=== PATIENT | female | born 1980 | race Caucasian/White ===

== ENCOUNTER 2016-12-30 20:15 | Emergency (ER) | payer MEDICAID ==
[2016-12-30 20:20] VITALS: BP 142/79; BMI 36.6
[2016-12-30] MEDS ORDERED: TORADOL 60 MG VIAL IM ONE (20:46)
[2016-12-30] MEDS ORDERED: PHENERGAN INJ 25 MG IM ONE (20:46)
[2016-12-30] MEDS ORDERED: PHENERGAN INJ 25 MG ONE (20:52)
[2016-12-30] MEDS ORDERED: TORADOL 60 MG VIAL ONE (20:52)
--- NOTE | 2016-12-30 20:53 | DR.GENAD ---
HPI - PCP Primary Care Physician: [facility] - Complaint/Symptoms Chief Complaint Doctors Comments: Patient complains of right lower quadrant pain that radiates down to the groin on the right side with nausea but denies hematuria, vomiting, diarrhea, fever, chills or any recent trauma. States the pain is 10 of 10. States she goes to a clinic in [place] for treatment but she has not gone there recently because she has not had any insurance. States she had a kidney stone last year about this same time and she passed the stone. She states her appetite has been decreased. She does not have a local doctor. States her periods has been regular and she has a Tubaligation. She is having right hip pain for the past 24 hours with the pain worst when she move or stand. She is not taking anything for the pain. Chief Complaint:: LOWER ABD PAIN YESTERDAY, TODAY LEFT UPPER LEG PAIN AND NAUSEA. DENIES ANY DYSURIA, VOMITING, DIARRHEA. DENIES LIFTING ANY HEAVY OBJECTS OVER LAST FEW DAYS. 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 negative: See HPI, Chills, Diaphoresis, Fever, Malaise, Weakness, Irritable, Fatigue, Other Eyes: No Symptoms Reported. negative: See HPI, Eye Pain, Blurred Vision, Tearing, Discharge, Photophobia, Diplopia, Other ENTM: No Symptoms Reported Respiratoy: No Symptoms Reported. negative: See HPI, Productive Cough, Non- Productive Cough, Moist Cough, Dry Cough, Hacking Cough, Barking Cough, Brassy Cough, Orthopnea, Short of Breath, Stridor, Wheezing, Hemoptysis, Other Cardiovascular: No Symptoms Reported. negative: See HPI, Chest Pain, Edema, Palpitations, Syncope, Cyanosis, Skin Mottling, Other Gastrointestinal/Abdominal: Abdominal Pain, Nausea. negative: No Symptoms Reported, See HPI, Constipation, Diarrhea, Vomiting, Food Intolerance, Other Genitourinary: No Symptoms Reported. negative: See HPI, Discharge, Dysuria, Frequency, Hematuria, Pain, Bleeding, Other Neurological: No Symptoms Reported. negative: See HPI, Anxiety, Depressed, Emotional Problems, Headache, Numbness, Paresthesia, Pre-existing Deficit, Seizure, Tingling, Tremors, Weakness, Dizziness, Problems Walking, Speech Problem, Other Musculoskeletal: No Symptoms Reported, Left, Hip Integumentary: No Symptoms Reported. negative: See HPI, Change in Color, Change in Hair/Nails, Dryness, Lesions, Lumps, Rash, Itching, Wound, Bruises, Juandice, Other Hematologic/Lymphatic: No Symptoms Reported. negative: See HPI, Anemia, Blood Clots, Easy Bleeding, Easy Bruising, Swollen Glands, Lymphadenopathy, Other Endocrine: No Symptoms Reported, Increased Urine, Decreased Appetite. negative : See HPI, Excessive Sweating, Flushing, Intolerance to Cold, Intolerance to Heat, Increased Hunger, Increased Thirst, Unexplained Weight Gain, Unexplained Weight Loss, Failure to Thrive, Other Psychiatric: No Symptoms Reported PE - Vital Signs Vitals: Temperature 98.2 F Pulse Rate 98 Respiratory Rate 16 Blood Pressure 142/79 O2 Sat by Pulse Oximetry 100 - General Limitations: No Limitations General Appearance: Alert, In Distress (moderate). negative: In No Apparent Distress, Appears Intoxicated, Anxious, Lethargic, Obtunded, Obese, Cachectic, Other - Head Head Exam: Normal Inspection, Atraumatic, Normocephalic - Eyes Eye exam: Normal Appearance, PERRL, EOMI. negative: Scleral Icterus, Conjunctival Injection, Nystagmus, Miosis, Mydrasis, Periorbital Swelling, Periorbital Tenderness, Other - ENT ENT Exam: Normal Exam, Normal Oropharynx, Normal External Ear Exam, Mucous Membranes Moist, TM's Normal Bilaterally External Ear Exam: Normal External Inspection TM/Canal Exam: Bilateral Normal Nose Exam: Normal Nose Exam. negative: Sinus Tenderness, Nasal Deviation, Crepitus, Septal Hematoma, Laceration, Abrasion, Other Mouth Exam: Normal Inspection Throat Exam: Normal Inspection - Neck Neck Exam: Normal Inspection, Full ROM, Trachea Midline. negative: Tenderness, Meningismus, Lymphadenopathy, Thyromegaly, Other - Chest Chest Inspection: Normal Inspection, Symmetric Chest Wall Rise - Respiratory Respiratory Exam: Normal Lung Sounds Bilat Respiratory Exam: Bilateral Clear to Auscultation - Cardiovascular Cardiovascular Exam: Regular Rate, Normal Rhythm, Normal Heart Sounds. negative : Bradycardia, Tachycardia, Irregular Rhythm, Systolic Murmur, Diastolic Murmur , Rubs, Gallop, Clicks, JVD, +S1, +S2, +S3, +S4, Other - Abdominal Exam Abdominal Exam: Normal Inspection, Normal Bowel Sounds, Soft, Tenderness (right lower quadrant and hypogastric tenderness), Guarding, Dimnished Bowel Sounds Abdominal Tenderness: RUQ, RLQ, Suprapubic, Moderate - Extremities Extremities Exam: Normal Inspection, Full ROM, Tenderness (left hip tender on palpation and movement), Normal Capillary Refill. negative: Edema, Joint Swelling, Calf Tenderness, Other - Back Back Exam: Normal Inspection, Full ROM. negative: Tenderness, (R) CVA Tenderness, (L) CVA Tenderness, Muscle Spasm, Paraspinal Tenderness, Vertebral Tenderness, Rashes, (R) Sciatic Notch Tenderness, (L) Sciatic Notch Tendern, (R ) Straight Leg Raise, (L) Straight Leg Raise, Other - Neurologic Neurological Exam: Alert, Oriented X3, CN II-XII Intact, Normal Gait, Reflexes Normal - Psychiatric Psychiatric Exam: Normal Affect, Normal Mood. negative: Depressed, Agitated, Anxious, Flat Affect, Manic, Homicidal Ideation, Suicidal Ideation, Other - Skin Skin Exam: Warm, Dry, Intact, Normal Color. negative: Rash, Cyanosis, Diaphoresis, Erythema, Pallor, Mottled, Other ROR - Labs Reviewed Laboratory Results Reviewed?: Yes (all labs and x-ray results reviewed and dis cussed with patient) Result Diagrams: 12/30/16 21:01 12/30/16 21:01 Laboratory: WBC 10.2 X10^3/uL (3.6-10.0) H 12/30/16 21:01 RBC 4.60 X10^6/uL (3.5-5.4) 12/30/16 21:01 Hgb 13.3 g/dL (12.0-16.0) 12/30/16 21:01 Hct 39.7 % (36.0-47.0) 12/30/16 21:01 MCV 86.2 fL (80.0-100.0) 12/30/16 21:01 MCH 28.9 pg (27.0-34.0) 12/30/16 21:01 MCHC 33.6 g/dL (33.0-35.0) 12/30/16 21: RDW 12.8 % (11.6-16.5) 12/30/16 21: Plt Count 289 X10^3/uL (150.0-450.0) 12/30/16 21:01 MPV 7.7 fL (7.4-11.0) 12/30/16 21:01 Neut % 52.3 % (42.0-75.0) 12/30/16 21:01 Lymph % 32.6 % (21.0-51.0) 12/30/16 21:01 [place] % 7.0 % (0.0-13.0) 12/30/16 21:01 Eos % 6.6 % (0.9-2.9) H 12/30/16 21:01 Baso % 1.5 % (0.2-1.0) H 12/30/16 21:01 Neut # 5.3 x10^3/uL (2.2-4.8) H 12/30/16 21:01 Lymph # 3.3 X10^3/uL (1.3-2.9) H 12/30/16 21:01 [place] # 0.7 x10^3/uL (0.3-0.8) 12/30/16 21:01 Eos # 0.7 x10^3/uL (0.0-0.2) H 12/30/16 21:01 Baso # 0.2 X10^3/uL (0.0-0.1) H 12/30/16 21:01 Absolute Nucleated RBC 0.0 /100WBC 05/12/17 21:01 Sodium 141 mmol/L (136-145) 12/30/16 21:01 Corrected Sodium 141 mmol/L (136-145) 12/30/16 21:01 Potassium 3.9 mmol/L (3.5-5.1) 12/30/16 21:01 Chloride 103 mmol/L (98-107) 12/30/16 21:01 Carbon Dioxide 28.5 mmol/L (21-32) 12/30/16 21:01 BUN 10 mg/dL (7-18) 12/30/16 21:01 Creatinine 0.82 mg/dL (0.55-1.02) 12/30/16 21:01 Est GFR (MDRD) Af Amer > 60 (>60) 12/30/16 21: Est GFR (MDRD) Non-Af > 60 (>60) 12/30/16 21:01 Glucose 114 mg/dL (65-99) H 12/30/16 21:01 Calcium 9.0 mg/dL (8.5-10.1) 12/30/16 21: Corrected Calcium TNP 12/30/16 21: Total Bilirubin 0.30 mg/dL (0.2-1.0) 12/30/16 21:01 AST 22 Units/L (15-37) 12/30/16 21: ALT 26 Units/L (12-78) 12/30/16 21:01 Alkaline Phosphatase 70 Units/L (46-116) 12/30/16 21:01 Total Protein 7.8 g/dL (6.4-8.2) 12/30/16 21: Albumin 3.6 g/dL (3.4-5.0) 12/30/16 21: Globulin 4.2 g/dL (2.5-4.5) 12/30/16 21:01 Albumin/Globulin Ratio 0.9 Ratio (1.1-2.1) L 12/30/16 21:01 Amylase 34 Units/L (25-115) 12/30/16 21: Lipase 91 Units/L (73-393) 12/30/16 21:01 Specimen Type Clean catch urine 12/30/16 21:00 Urine Color Yellow (YELLOW) 12/30/16 21:00 Urine Appearance Slightly hazy (CLEAR) 12/30/16 21:00 Urine pH 5.0 (5.0 - 8.0) 12/30/16 21:00 Ur Specific [place] 1.020 (1.000-1.030) 12/30/16 21:00 Urine Protein Negative (NEGATIVE) 12/30/16 21:00 Urine Glucose (UA) Negative (NEGATIVE) 12/30/16 21:00 Urine Ketones Negative (NEGATIVE) 12/30/16 21:00 Urine Occult Blood 2+ (NEGATIVE) 12/30/16 21:00 Urine Nitrite Negative (NEGATIVE) 12/30/16 21:00 Urine Bilirubin Negative (NEGATIVE) 12/30/16 21:00 Urine Urobilinogen Normal (NORMAL) 12/30/16 21:00 Ur Leukocyte Esterase Negative (NEGATIVE) 12/30/16 21:00 Urine RBC 2-6 /HPF (NEGATIVE) 12/30/16 21:00 Urine WBC 0-3 /HPF (NEGATIVE) 12/30/16 21:00 Ur Squamous Epith Cells Numerous /HPF (NEGATIVE) 12/30/16 21:00 Urine Bacteria Trace /HPF (NEGATIVE) 12/30/16 21:00 Ur Culture Indicated? No/not indicated 12/30/16 21:00 - XRAY XRAY Interpreted by: Radiologist (CT abdomen: Mild thick-walled urinary bladder suggests Signs UTI. No renal stone or hydroureteronephrosis.) - Diagnosis Discharge Problem: Left hip pain, degenerativie arthritis Abdominal pain Qualifiers: Abdominal location: right upper quadrant Qualified Code(s): R10.11 - Right upper quadrant pain Urinary tract infection Qualifiers: Urinary tract infection type: acute cystitis Hematuria presence: without hematuria Qualified Code(s): N30.00 - Acute cystitis without hematuria - Discharge Plan Disposition: HOME, SELF-CARE Condition: Stable Prescriptions: Ciprofloxacin HCl [CIPRO 500 MG TAB *] 500 mg PO Q12H #20 tab Ibuprofen [MOTRIN TAB 800 MG *] 800 mg PO Q8H PRN #90 tab PRN Reason: Pain/Inflammation - Follow ups/Referrals Follow ups/Referrals: NFD,None [Primary Care Provider] - 3 days MARCELL JONES [STAFF PHYSICIAN] - 3 days - Instructions Instructions: Urinary Tract Infection, Abdominal Pain, Adult, [id number], Hip Pain
[2016-12-30 21:11] LABS: BILIRUBIN,URINE NEGATIVE (NEGATIVE); BLOOD/HEMOGLOBIN,URINE 2+ (NEGATIVE); GLUCOSE, URINE NEGATIVE (NEGATIVE); KETONES,URINE NEGATIVE (NEGATIVE); LEUKOCYTE ESTERASE ,URINE NEGATIVE (NEGATIVE); NITRITES,URINE NEGATIVE (NEGATIVE); PROTEIN,URINE NEGATIVE (NEGATIVE); UROBILINOGEN,URINE NORMAL (NORMAL)
[2016-12-30 21:12] LABS: BASOPHILS # (AUTO) 0.2 X10^3/uL (0.0-0.1); BASOPHILS % (AUTO) 1.5 % (0.2-1.0); EOSINOPHILS # (AUTO) 0.7 x10^3/uL (0.0-0.2); EOSINOPHILS % (AUTO) 6.6 % (0.9-2.9); HEMATOCRIT 39.7 % (36.0-47.0); HEMOGLOBIN 13.3 g/dL (12.0-16.0); LYMPHOCYTES # (AUTO) 3.3 X10^3/uL (1.3-2.9); LYMPHOCYTES % (AUTO) 32.6 % (21.0-51.0); MEAN CORPUSCULAR HEMOGLOBIN 28.9 pg (27.0-34.0); MEAN CORPUSCULAR HGB CONC 33.6 g/dL (33.0-35.0); MEAN CORPUSCULAR VOLUME 86.2 fL (80.0-100.0); MEAN PLATELET VOLUME 7.7 fL (7.4-11.0); MONOCYTES # (AUTO) 0.7 x10^3/uL (0.3-0.8); NEUTROPHILS # (AUTO) 5.3 x10^3/uL (2.2-4.8); NEUTROPHILS % (AUTO) 52.3 % (42.0-75.0); PLATELET COUNT 289 X10^3/uL (150.0-450.0); RED CELL DISTRIBUTION WIDTH 12.8 % (11.6-16.5); WHITE BLOOD COUNT 10.2 X10^3/uL (3.6-10.0)
[2016-12-30 21:19] LABS: APPEARANCE,URINE SLIGHTLY HAZY (CLEAR); BACTERIA,URINE TRACE /HPF (NEGATIVE); COLOR,URINE YELLOW (YELLOW); SQUAMOUS EPITHELIAL CELL,UR NUMEROUS /HPF (NEGATIVE)
[2016-12-30 21:20] LABS: ALANINE AMINOTRANSFERASE 26 Units/L (12-78); ALBUMIN 3.6 g/dL (3.4-5.0); ALKALINE PHOSPHATASE 70 Units/L (46-116); AMYLASE 34 Units/L (25-115); ASPARTATE AMINO TRANSFERASE 22 Units/L (15-37); BLOOD UREA NITROGEN 10 mg/dL (7-18); CARBON DIOXIDE 28.5 mmol/L (21-32); CHLORIDE 103 mmol/L (98-107); COR NA(FOR HYPERGLY) 141 mmol/L (136-145); CREATININE 0.82 mg/dL (0.55-1.02); GLUCOSE 114 mg/dL (65-99); LIPASE 91 Units/L (73-393); SODIUM 141 mmol/L (136-145); TOTAL PROTEIN 7.8 g/dL (6.4-8.2); eGFR BLACK RACES > 60 (>60); eGFR NON BLACK RACES > 60 (>60)
--- NOTE | 2016-12-30 21:23 | CT ---
CT abdomen and pelvis without contrast Indication: Right lower quadrant pain. Right flank pain. Comparison: April 04, 2016 CT abdomen and pelvis. Technique: Helical images through the abdomen and pelvis without contrast. Coronal and sagittal refo rmats provided. Findings: Review of bone windows shows mild SI joint and lower lumbar spine facet arthropathy. Limit ed images through lower chest shows no acute abnormality. Abdomen: The gallbladder, liver, spleen, pancreas and adrenal glands are within normal limits for no ncontrast study. The stomach, small bowel and appendix are normal. Fat containing umbilical hernia n oted. Vasculature is free of plaque. There is no hydroureteronephrosis or ureteral stone identified. No renal stone seen. Pelvis: Urinary bladder is borderline thick-walled but partially collapsed. The rectum is normal. Ut erus and adnexa show no acute abnormality. Impression: 1. Mild thick-walled urinary bladder. Correlate clinically for signs of urinary tract infection. Bl adder is also collapse which can accentuate the appearance of the bladder wall. 2. No renal stone or hydroureteronephrosis. No other acute abnormality. Reported By:
[2016-12-30] MEDS ORDERED: LEVAQUIN TAB 500 MG PO STA (21:42)
[2016-12-30] MEDS ORDERED: LEVAQUIN TAB 500 MG ONE (21:44)
== END 2016-12-30 21:46 | disposition home or self-care (01) ==
LOC: ER 20:23
DX: N30.00 Acute cystitis without hematuria (principal); R10.31 Right lower quadrant pain; M25.552 Pain in left hip; M19.90 Unspecified osteoarthritis, unspecified site
CPT/HCPCS: 36415; 74176; 80053; 81001; 82150; 83690; 85025; 96372; 99283; J1885; J2550

== ENCOUNTER → 2017-01-10 | Outpatient (CLI) | payer MEDICAID ==
[2016-12-30 20:20] VITALS: BP 142/79
--- NOTE | 2017-01-10 11:02 | MG ---
Examination: Bilateral screening mammogram. Clinical history: Routine screening. Technique: Digital CC and MLO views of both breasts were obtained. Computer aided detection analysis was performed and used during the interpretation. Comparison: None available. Baseline mammogram. Findings: The breasts are composed of scattered fibroglandular densities. Benign-appearing calcifications are noted in the breasts bilaterally. No suspicious mass, area of architectural distortion or suspicious cluster of microcalcifications is noted. Impression: 1. No mammographic evidence of malignancy. BI-RADS category 2-benign findings. Recommend routine annual screening mammogram. Diagnostic CAD was utilized and reviewed. * 0 (ZERO) - ASSESSMENT INCOMPLETE; ADDITIONAL IMAGING IS NEEDED. * 0C - ASSESSMENT INCOMPLETE, NEEDS ADDITIONAL IMAGING EVALUATION AND/OR PRIOR MAMMOGRAMS FOR COMPAR JE. * 1/1 (ONE) - NEGATIVE. * 2/II (TWO) - BENIGN FINDINGS. * 3/III (THREE) - PROBABLY BENIGN FINDING; SHORT INTERVAL FOLLOW-UP SUGGESTED. * 4/IV (FOUR) - SUSPICIOUS ABNORMALITY; BIOPSY SHOULD BE CONSIDERED. * 5/V - HIGHLY SUSPICIOUS OF MALIGNANCY; BIOPSY SHOULD BE PERFORMED. * 6/IV - KNOWN BIOPSY PROVEN MALIGNANCY-APPROPRIATE ACTION SHOULD BE TAKEN. A NEGATIVE X-RAY REPORT SHOULD NOT DELAY BIOPSY IF A DOMINANT OR CLINICALLY SUSPICIOUS MASS IS PRESENT; 4 TO 8 PERCENT OF CANCERS ARE NOT IDENTIFIED BY X-RAY. A NEGATIVE REPORT MAY REINFORCE THE CLINICAL IMPRESSION. ADENOSIS AND DENSE BREASTS MAY OBSCURE AN UNDERLYING NEOPLASM. Reported By:
== END ==
LOC: RAD 09:09
PROVIDERS: ATTEND Internal Medicine
DX: Z12.31 Encounter for screening mammogram for malignant neoplasm of breast (principal)
CPT/HCPCS: 77067

== ENCOUNTER 2017-06-28 15:14 | Emergency (ER) | payer MEDICAID ==
[2017-06-28 15:19] VITALS: BP 119/78; BMI 36.3
[2017-06-28] MEDS ORDERED: TORADOL 60 MG VIAL IM ONE (15:42)
--- NOTE | 2017-06-28 15:52 | RAD ---
Right hand three views Indication: Pain after fall. Findings: There is no cortical lucency or malalignment. Impression: No acute right hand fracture. Reported By:
--- NOTE | 2017-06-28 15:53 | DR.GENAD ---
HPI - PCP Primary Care Physician: lily Hussein HPI Comment HPI Comment: She tripped over a toy and landed on outstretched hand. She has experienced right hand pain since then. She is right handed. - Complaint/Symptoms Chief Complaint:: patient stated she fell down her steps at home and landed on her right hand. swelling noted. 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 - Family History History of Family Medical Conditions: Yes Family Medical History: Cancer, Hypertension - Social History Does patient currently use any type of tobacco product: No Have you used tobacco products in the last 12 months: No Type of Tobacco Use: None Does any household member use tobacco: No Alcohol Use: None Do you use any recreational Drugs:: No Lives With: Family Lives Where: Home - infectious screening In the last 2 months have you had wt loss of >10#?: NO Have you had fever, night sweats or hemotysis?: No Have you traveled outside the country in the last 6 months?: No Isolation: Standard ROS - Review of Systems Constitutional: No Symptoms Reported Eyes: No Symptoms Reported ENTM: No Symptoms Reported Respiratoy: No Symptoms Reported Cardiovascular: No Symptoms Reported Gastrointestinal/Abdominal: No Symptoms Reported Genitourinary: No Symptoms Reported Neurological: No Symptoms Reported Musculoskeletal: Right, Hand Integumentary: No Symptoms Reported Hematologic/Lymphatic: No Symptoms Reported Endocrine: No Symptoms Reported Psychiatric: No Symptoms Reported All Other Systems: Reviewed and Negative PE - Vital Signs Vitals: Temperature 98.6 F Pulse Rate 77 Respiratory Rate 16 Blood Pressure 119/78 O2 Sat by Pulse Oximetry 99 - General Limitations: No Limitations General Appearance: Alert, In No Apparent Distress - Eyes Eye exam: Normal Appearance, PERRL, EOMI - ENT ENT Exam: Normal Exam - Neck Neck Exam: Normal Inspection - Chest Chest Inspection: Normal Inspection - Respiratory Respiratory Exam: Normal Lung Sounds Bilat - Cardiovascular Cardiovascular Exam: Regular Rate, Normal Rhythm - Abdominal Exam Abdominal Exam: Normal Inspection, Normal Bowel Sounds, Soft - Extremities Extremities Exam: Tenderness (overight hand at metacarpals, 2nd, 3rd and 4th MCP joints. ) - Neurologic Neurological Exam: Alert, Oriented X3, CN II-XII Intact - Psychiatric Psychiatric Exam: Normal Affect, Normal Mood - Skin Skin Exam: Warm, Dry, Intact, Normal Color ROR - XRAY XRAY Interpreted by: Radiologist (no acute fracture) - Diagnosis Discharge Problem: Contusion of hand, right, Hand pain, right - Discharge Plan Disposition: HOME, SELF-CARE Condition: Stable - Follow ups/Referrals Follow ups/Referrals: NFD,None [Primary Care Provider] - 3 days - Instructions
[2017-06-28] MEDS ORDERED: TORADOL 60 MG VIAL ONE (15:55)
== END 2017-06-28 16:31 | disposition home or self-care (01) ==
LOC: ER 15:24
DX: S60.221A Contusion of right hand, initial encounter (principal); M79.641 Pain in right hand; W10.9XXA Fall (on) (from) unspecified stairs and steps, initial encounter; Y92.009 Unspecified place in unspecified non-institutional (private) residence as the place of occurrence of the external cause
CPT/HCPCS: 29130; 73130; 99282; J1885

== ENCOUNTER 2017-07-10 13:33 | Emergency (ER) | payer MEDICAID ==
[2017-07-10 13:40] VITALS: BP 131/73; BMI 36.3
[2017-07-10] MEDS ORDERED: DECADRON INJ IM ONE (15:05)
[2017-07-10] MEDS ORDERED: TORADOL 60 MG VIAL IM ONE (15:05)
[2017-07-10] MEDS ORDERED: ROCEPHIN VIAL 1 GM IM ONE (15:05)
--- NOTE | 2017-07-10 15:08 | DR.GENAD ---
HPI - PCP Primary Care Physician: Mariya - HPI Comment HPI Comment: WORSE TODAY. NO FEVER. SOME SINUS DRAINAGE PRESENT. - Complaint/Symptoms Chief Complaint Doctors Comments: PAIN AND SWELLING LEFT MAXILLARY SINUS TIMES 2 DAYS. Chief Complaint:: "Yesterday I noticed that the left side of my face was swollen and my head hurt really bad. Today It got much worse and I called my doctor. They stated that I could not make an appointment today and told me to go the ER if it got worse. Right now my head is killing me and the whole side of my face is swollen. 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 - Family History History of Family Medical Conditions: Yes Family Medical History: Cancer, Hypertension - Social History Does patient currently use any type of tobacco product: No Have you used tobacco products in the last 12 months: No Type of Tobacco Use: None Does any household member use tobacco: No Alcohol Use: None Do you use any recreational Drugs:: No Lives With: Family Lives Where: Home - infectious screening In the last 2 months have you had wt loss of >10#?: NO Have you had fever, night sweats or hemotysis?: No Have you traveled outside the country in the last 6 months?: No Isolation: Standard ROS - Review of Systems Constitutional: No Symptoms Reported Eyes: No Symptoms Reported ENTM: Ear Pain (LT EAR), Nose Discharge, Nose Congestion. negative: Throat Pain Respiratoy: No Symptoms Reported. negative: Productive Cough, Non-Productive Cough, Short of Breath, Wheezing Cardiovascular: No Symptoms Reported Gastrointestinal/Abdominal: No Symptoms Reported Genitourinary: No Symptoms Reported Neurological: Headache, Dizziness Musculoskeletal: No Symptoms Reported Integumentary: No Symptoms Reported Hematologic/Lymphatic: No Symptoms Reported Endocrine: No Symptoms Reported All Other Systems: Reviewed and Negative PE - Vital Signs Vitals: Temperature 98.5 F Pulse Rate 97 Respiratory Rate 18 Blood Pressure 131/73 O2 Sat by Pulse Oximetry 100 - General Limitations: No Limitations General Appearance: Alert - Head Head Exam: Other (LEFT FACIAL STACIA AND SWELLING.) - Eyes Eye exam: Normal Appearance - ENT ENT Exam: Normal External Ear Exam External Ear Exam: Normal External Inspection TM/Canal Exam: Bilateral Bulging Nose Exam: Sinus Tenderness (LT MAXILLARY SINUS PAIN) Mouth Exam: Normal Inspection Throat Exam: Normal Inspection - Neck Neck Exam: Trachea Midline. negative: Tenderness, Meningismus, Lymphadenopathy - Chest Chest Inspection: Symmetric Chest Wall Rise - Respiratory Respiratory Exam: Normal Lung Sounds Bilat Respiratory Exam: Bilateral Clear to Auscultation - Abdominal Exam Abdominal Exam: Normal Inspection, Normal Bowel Sounds. negative: Tenderness - Extremities Extremities Exam: Normal Inspection - Back Back Exam: Normal Inspection - Neurologic Neurological Exam: Alert, Oriented X3 - Psychiatric Psychiatric Exam: Normal Affect, Normal Mood - Skin Skin Exam: Normal Color MDM - Differential Diagnosis Differential Diagnosis: SINUSITIS, CELLULITIS, DENTAL INFECTION Course - Treatment Treatment: SEE ORDERS. - Education/Counseling Education/Counseling: Patient, Education Educated On: Diagnosis, Needs for Follow Up ROR - XRAY XRAY Interpreted by: Radiologist XRAY Findings: REPORT DISCUSS WITH PATIENT. - Diagnosis Discharge Problem: Gingivitis Cellulitis Qualifiers: Site of cellulitis: other site Qualified Code(s): L03.818 - Cellulitis of other sites - Discharge Plan Disposition: 01 HOME, SELF-CARE Condition: Stable Prescriptions: Amoxicillin/Potassium Clav [Augmentin Xr 1,000-62.5 Tab] 1 tab PO Q12H #20 tab.sr Ibuprofen [MOTRIN TAB 800 MG *] 800 mg PO Q8H PRN #20 tab PRN Reason: Pain/Inflammation Tramadol HCl 50 mg PO Q8H PRN #15 tablet PRN Reason: - Follow ups/Referrals Follow ups/Referrals: Yannick CASPER [Primary Care Provider] - 3 days - Instructions Instructions: Gingivitis, [id number], Cellulitis, Adult, [id number] Additional Instructions: RETURN TO ED IF WORSE.
[2017-07-10] MEDS ORDERED: ROCEPHIN VIAL 1 GM ONE (15:18)
[2017-07-10] MEDS ORDERED: DECADRON INJ ONE (15:18)
[2017-07-10] MEDS ORDERED: TORADOL 60 MG VIAL ONE (15:18)
--- NOTE | 2017-07-10 16:16 | CT ---
HISTORY: Headache, sinus pressure Study: CT paranasal sinuses without contrast Comparison: None Technique: Multiple axial images of the paranasal sinuses were obtained without the administration of IV contrast. Coronal and sagittal reformats were performed and reviewed. Dose reduction techniques including Automated Exposure Control (AEC) and adjustment of mA and kV were utilized. Findings: The maxillary sinuses, anterior and posterior ethmoid air cells, sphenoid sinuses, and frontal sinuse s demonstrate no evidence for mucosal inflammatory disease. The nasal septum is midline. The ostiom eatal unit on the right and left are widely patent without inflammatory change. The left and right f rontal recesses are unremarkable in their appearance. Visualized portions of the posterior fossa and intracranial structures are unremarkable as well. IMPRESSION: 1. No acute sinus disease. Reported By:
== END 2017-07-10 16:40 | disposition home or self-care (01) ==
LOC: ER 13:54
DX: L03.818 Cellulitis of other sites (principal); K05.10 Chronic gingivitis, plaque induced
CPT/HCPCS: 36415; 70486; 96372; 99282; 99283; J0696; J1100; J1885

== ENCOUNTER 2017-09-08 13:21 | Emergency (ER) | payer SELFPAY ==
[2017-09-08 13:28] VITALS: BP 126/64; BMI 40.2
--- NOTE | 2017-09-08 13:56 | DR.GENAD ---
HPI - PCP Primary Care Physician: YARED - Complaint/Symptoms Chief Complaint:: PT C/O INCISION REDNESS AND PAIN. PT STATES SHE HAD A TOTAL HYSTERECTOMY WITH HERNIA REPAIR X 3 WEEKS AGO. PT STATES SHE HAS NOTICED SOME DRAINAGE (CLEAR IN COLOR) WITH REDNESS AND PAIN. - Nurses notes reviewed Nurses Notes Review: Yes - Source History Provided: Patient - Mode of Arrival Mode of Arrival: Ambulatory - Timing Onset of Chief Complaint: 09/08/17 Came on: Gradually - Duration Duration: Since Onset Duration: Weeks - Severity Severity: Moderate - Associated Signs and Symptoms Associated Signs and Symptoms: no fevers, had culture done 10 days ago, neg per pt PMH - PMH Past Medical History: Yes Past Medical History: Migraines, Headaches, Hypertension Past Medical History Comment: hyst done due to cysts and endometriosis Past Surgical History: Yes Surgical History: Abdominal Surgery, , 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 negative: Chills, Fever Eyes: No Symptoms Reported ENTM: No Symptoms Reported Respiratoy: No Symptoms Reported Cardiovascular: No Symptoms Reported Gastrointestinal/Abdominal: No Symptoms Reported Genitourinary: See HPI, Pain (pelvic pain as per HPI. No vag bleed, no vag d/c) . negative: Discharge, Dysuria, Frequency, Hematuria Neurological: No Symptoms Reported Musculoskeletal: No Symptoms Reported Integumentary: No Symptoms Reported Endocrine: No Symptoms Reported Psychiatric: No Symptoms Reported All Other Systems: Reviewed and Negative PE - Vital Signs Vitals: Temperature 97.7 F Pulse Rate 86 Respiratory Rate 20 Blood Pressure 126/64 O2 Sat by Pulse Oximetry 99 - General Limitations: No Limitations General Appearance: Alert, In No Apparent Distress - Head Head Exam: Normal Inspection - Eyes Eye exam: Normal Appearance - ENT ENT Exam: Normal Exam Throat Exam: Normal Inspection. negative: Tonsillar Erythema - Neck Neck Exam: Normal Inspection, Full ROM, Trachea Midline - Chest Chest Inspection: Normal Inspection - Respiratory Respiratory Exam: Normal Lung Sounds Bilat. negative: Accessory Muscle Use, Respiratory Distress Respiratory Exam: Bilateral Clear to Auscultation - Cardiovascular Cardiovascular Exam: Regular Rate, Normal Rhythm. negative: Systolic Murmur, Diastolic Murmur - Abdominal Exam Abdominal Exam: Normal Inspection, Normal Bowel Sounds Abdominal Tenderness: LLQ, Mild (Pt with well healing incision except for left end which has deheisced approx 1 cm. Not active drainage, mild surrounding erythems. No palpable abscess, no foul odor) - Extremities Extremities Exam: Normal Inspection, Full ROM - Neurologic Neurological Exam: Alert, Oriented X3 - Psychiatric Psychiatric Exam: Normal Affect, Normal Mood - Skin Skin Exam: Warm, Dry (see above) ROR - Labs Reviewed Laboratory Results Reviewed?: Yes Result Diagrams: 09/08/17 14:08 09/08/17 14:08 Laboratory: WBC 7.9 X10^3/uL (3.6-10.0) 09/08/17 14:08 RBC 4.46 X10^6/uL (3.5-5.4) 09/08/17 14:08 Hgb 12.9 g/dL (12.0-16.0) 09/08/17 14:08 Hct 38.6 % (36.0-47.0) 09/08/17 14:08 MCV 86.7 fL (80.0-100.0) 09/08/17 14:08 MCH 28.9 pg (27.0-34.0) 09/08/17 14:08 MCHC 33.4 g/dL (33.0-35.0) 09/08/17 14:08 RDW 12.5 % (11.6-16.5) 09/08/17 14:08 Plt Count 344 X10^3/uL (150.0-450.0) 09/08/17 14:08 MPV 8.1 fL (7.4-11.0) 09/08/17 14:08 Neut % 62.8 % (42.0-75.0) 09/08/17 14:08 Lymph % 28.6 % (21.0-51.0) 09/08/17 14:08 Caldwell % 5.3 % (0.0-13.0) 09/08/17 14:08 Eos % 2.6 % (0.9-2.9) 09/08/17 14:08 Baso % 0.7 % (0.2-1.0) 09/08/17 14:08 Neut # 5.0 x10^3/uL (2.2-4.8) H 09/08/17 14:08 Lymph # 2.3 X10^3/uL (1.3-2.9) 09/08/17 14:08 Caldwell # 0.4 x10^3/uL (0.3-0.8) 09/08/17 14:08 Eos # 0.2 x10^3/uL (0.0-0.2) 09/08/17 14:08 Baso # 0.1 X10^3/uL (0.0-0.1) 09/08/17 14:08 Absolute Nucleated RBC 0.1 /100WBC 09/08/17 14:08 Sodium 138 mmol/L (136-145) 09/08/17 14:08 Corrected Sodium TNP 09/08/17 14:08 Potassium 4.7 mmol/L (3.5-5.1) 09/08/17 14:08 Chloride 103 mmol/L (98-107) 09/08/17 14:08 Carbon Dioxide 25.8 mmol/L (21-32) 09/08/17 14:08 BUN 11 mg/dL (7-18) 09/08/17 14:08 Creatinine 0.63 mg/dL (0.55-1.02) 09/08/17 14:08 Est GFR (MDRD) Af Amer > 60 (>60) 09/08/17 14:08 Est GFR (MDRD) Non-Af > 60 (>60) 09/08/17 14:08 Glucose 91 mg/dL (65-99) 09/08/17 14:08 Calcium 9.2 mg/dL (8.5-10.1) 09/08/17 14:08 Corrected Calcium TNP 09/08/17 14:08 Total Bilirubin 0.30 mg/dL (0.2-1.0) 09/08/17 14:08 AST 19 Units/L (15-37) 09/08/17 14:08 ALT 19 Units/L (12-78) 09/08/17 14:08 Alkaline Phosphatase 54 Units/L (46-116) 09/08/17 14:08 Total Protein 7.0 g/dL (6.4-8.2) 09/08/17 14:08 Albumin 3.5 g/dL (3.4-5.0) 09/08/17 14:08 Globulin 3.5 g/dL (2.5-4.5) 09/08/17 14:08 Albumin/Globulin Ratio 1.0 Ratio (1.1-2.1) L 09/08/17 14:08 - XRAY XRAY Interpreted by: Radiologist XRAY Findings: CT shows cellulitis, no abscess, nothing else acute. Pt already on Bactrim - Diagnosis Discharge Problem: Cellulitis, Postoperative abdominal pain - Discharge Plan Disposition: HOME, SELF-CARE Condition: Stable Prescriptions: Tramadol HCl [Tramadol HCl ER] 100 mg PO TID PRN #15 tbmp.24hr PRN Reason: Pain - Follow ups/Referrals Follow ups/Referrals: NFD,None [Primary Care Provider] - 3 days - Instructions
[2017-09-08 14:14] LABS: BASOPHILS # (AUTO) 0.1 X10^3/uL (0.0-0.1); BASOPHILS % (AUTO) 0.7 % (0.2-1.0); EOSINOPHILS # (AUTO) 0.2 x10^3/uL (0.0-0.2); EOSINOPHILS % (AUTO) 2.6 % (0.9-2.9); HEMATOCRIT 38.6 % (36.0-47.0); HEMOGLOBIN 12.9 g/dL (12.0-16.0); LYMPHOCYTES # (AUTO) 2.3 X10^3/uL (1.3-2.9); LYMPHOCYTES % (AUTO) 28.6 % (21.0-51.0); MEAN CORPUSCULAR HEMOGLOBIN 28.9 pg (27.0-34.0); MEAN CORPUSCULAR HGB CONC 33.4 g/dL (33.0-35.0); MEAN CORPUSCULAR VOLUME 86.7 fL (80.0-100.0); MEAN PLATELET VOLUME 8.1 fL (7.4-11.0); MONOCYTES # (AUTO) 0.4 x10^3/uL (0.3-0.8); MONOCYTES % (AUTO) 5.3 % (0.0-13.0); NEUTROPHILS % (AUTO) 62.8 % (42.0-75.0); PLATELET COUNT 344 X10^3/uL (150.0-450.0); RED BLOOD COUNT 4.46 X10^6/uL (3.5-5.4); RED CELL DISTRIBUTION WIDTH 12.5 % (11.6-16.5); WHITE BLOOD COUNT 7.9 X10^3/uL (3.6-10.0)
[2017-09-08 14:27] LABS: ALANINE AMINOTRANSFERASE 19 Units/L (12-78); ALBUMIN 3.5 g/dL (3.4-5.0); ALKALINE PHOSPHATASE 54 Units/L (46-116); ASPARTATE AMINO TRANSFERASE 19 Units/L (15-37); BLOOD UREA NITROGEN 11 mg/dL (7-18); CALCIUM 9.2 mg/dL (8.5-10.1); CARBON DIOXIDE 25.8 mmol/L (21-32); CHLORIDE 103 mmol/L (98-107); CREATININE 0.63 mg/dL (0.55-1.02); SODIUM 138 mmol/L (136-145); eGFR BLACK RACES > 60 (>60); eGFR NON BLACK RACES > 60 (>60)
--- NOTE | 2017-09-08 14:42 | CT ---
CT abdomen and pelvis with contrast Indication: Complains incisional redness and pain. Hysterectomy and hernia repair 3 weeks prior. Comparison: 12/30/2016 CT Technique: Helical images through the abdomen and pelvis after IV contrast. Coronal and sagittal refo rmats provided. Findings: Review of bone windows shows minimal spine and pelvis degenerative changes. Limited images through the lower chest shows no acute abnormality. Abdomen: The gallbladder, liver, spleen, pancreas, adrenal glands, stomach and small bowel are normal . No acute colonic abnormalities seen. Appendix is normal. Vasculature is normal. The kidneys are nor mal. There is small fat containing umbilical hernia. There is scarring along the lower abdominal wall from recent incision see axial image 76. Small fat c ontaining hernia near the incision site seen on axial image 70. Pelvis: The urinary bladder is collapsed. The rectum is normal. Uterus is absent. No adnexal region l esions seen. No large fluid collection seen in the pelvis. Impression: 1. Incisional scarring and stranding along the lower abdominal wall. Cellulitis is possible. No large drainable fluid collections seen. 2. Ventral fat containing hernias as above. 3. No intra-abdominal abscess or other acute abnormality. Reported By:
== END 2017-09-08 15:37 | disposition home or self-care (01) ==
LOC: ER 13:32
DX: L03.90 Cellulitis, unspecified (principal); G89.18 Other acute postprocedural pain
CPT/HCPCS: 36415; 74177; 80053; 85025; 96365; 99282; 99283; A4222

== ENCOUNTER 2018-01-08 08:02 | Emergency (ER) | payer SELFPAY ==
[2018-01-08 08:06] VITALS: BP 128/72; BMI 36.6
[2018-01-08] MEDS ORDERED: TORADOL 60 MG VIAL IM ONE (08:19)
[2018-01-08] MEDS ORDERED: TORADOL 60 MG VIAL ONE (08:20)
--- NOTE | 2018-01-08 08:28 | DR.EXTPAIN ---
HPI - Time seen Time seen: 08:20 - PCP Primary Care Physician: morena - Complaint/Symptoms Chief Complaint Doctor Comments: Patient presented to the ED with complaint of slipping on the floor in the kitchen two days ago injuring her right ankle. She does not know if the ankle was everted or not. She admits to pain on the lateral aspect of right ankle. The pain is 8/10, sharp, worse with pressure. Chief Complaint:: pt stated she was walking in her kitchen and slipped on a wet spot and hurt her right foot and ankle. 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 - Family History History of Family Medical Conditions: Yes Family Medical History: Cancer, Hypertension - Social History Does patient currently use any type of tobacco product: No Have you used tobacco products in the last 12 months: No Type of Tobacco Use: None Does any household member use tobacco: No Alcohol Use: None Do you use any recreational Drugs:: No Lives With: Family Lives Where: Home - infectious screening In the last 2 months have you had wt loss of >10#?: NO Have you had fever, night sweats or hemotysis?: No Have you traveled outside the country in the last 6 months?: No Isolation: Standard ROS - Review of Systems Eyes: No Symptoms Reported ENTM: No Symptoms Reported Respiratoy: No Symptoms Reported Cardiovascular: No Symptoms Reported Gastrointestinal/Abdominal: No Symptoms Reported Genitourinary: No Symptoms Reported Neurological: No Symptoms Reported Musculoskeletal: Ankle (right swollen) Integumentary: Lesions (abrasion of right lateral malleolus) Hematologic/Lymphatic: No Symptoms Reported Endocrine: No Symptoms Reported Psychiatric: No Symptoms Reported All Other Systems: Reviewed and Negative PE - Vital Signs Vitals: Temperature 98.3 F Pulse Rate 92 Respiratory Rate 16 Blood Pressure 128/72 O2 Sat by Pulse Oximetry 100 - General General Appearance: Alert, In No Apparent Distress - Head Head Exam: Normal Inspection, Atraumatic - Eyes Eye exam: Normal Appearance, PERRL, EOMI - ENT ENT Exam: Normal Exam - Neck Neck Exam: Normal Inspection, Full ROM - Chest Chest Inspection: Normal Inspection - Respiratory Respiratory Exam: Normal Lung Sounds Bilat Respiratory Exam: Bilateral Clear to Auscultation - Cardiovascular Cardiovascular Exam: Regular Rate, Normal Rhythm - Abdominal Exam Abdominal Exam: Normal Inspection, Normal Bowel Sounds Abdominal Tenderness: negative: RUQ, RLQ, LUQ, LLQ, Epigastrium, Suprapubic, Diffuse, Mild, Moderate, Severe, Other - Extremities Extremities Exam: Normal Inspection, Full ROM - Upper Extremities Shoulder Exam: Normal Inspection Arm Exam: Normal Inspection, Full ROM Elbow Exam: Normal Inspection Forearm Exam: Normal Inspection Hand Exam: Normal Inspection Neuromotor Exam: Normal Exam Neurosensory Exam: Normal Exam Hand Tendon Exam: Flexor Digitorium Profundus (Location) Upper Ext. Vascular Exam: Capillary Refill - Lower Extremities Hip/Pelvis Exam: Normal Inspection, Full ROM Upper Leg Exam: Normal Inspection Knee Exam: Normal Inspection Lower Leg Exam: Normal Inspection Ankle Exam: Tenderness (right lateral malleolus with decreased ROM, tender), Abrasion, Tenderness over talofibular lig Foot/Toe Exam: Normal Inspection Neurovascular/Tendon Exam: Normal Capillary Refill Gait Exam: Observed and Normal - Back Back Exam: Normal Inspection, Full ROM - Neurological Neurological Exam: Alert, Oriented X3 - Skin Skin Exam: Warm, Dry, Intact Course - Reevaluation 1st: Improved - Education/Counseling Educated On: Treatment, Diagnosis, Prognosis, Needs for Follow Up ROR - XRAY XRAY Interpreted by: Radiologist (Ankle, Fooe: negative, ankle with soft tissue swelling) - Diagnosis Discharge Problem: Ankle sprain Qualifiers: Encounter type: initial encounter Involved ligament of ankle: tibiofibular ligament Laterality: right Qualified Code(s): S93.431A - Sprain of tibiofibular ligament of right ankle, initial encounter - Discharge Plan Condition: Stable - Follow ups/Referrals Follow ups/Referrals: Yannick CASPER [Primary Care Provider] - 3 days - Instructions
--- NOTE | 2018-01-08 08:45 | RAD ---
HISTORY: Pain after slipping. Study: Right ankle: Three views Comparison: 07/27/2014 Findings: Mild soft tissue swelling is noted medially. The malleoli, tibial plafond and talar dome appear to b e intact. No appreciable calcaneal spurring is noted. No acute bony abnormalities are identified. IMPRESSION: 1. Mild soft tissue swelling medially. 2. Otherwise, negative radiographs of the right ankle. Reported By:
--- NOTE | 2018-01-08 08:48 | RAD ---
HISTORY: Pain after slipping injury Study: Right foot: Three views Comparison: 11/18/2015 Findings: Tarsal, metatarsal and phalangeal alignment is normal. No acute bony or joint abnormalities are iden tified. IMPRESSION: 1. Negative radiographs of the right foot. Reported By:
== END 2018-01-08 09:15 | disposition home or self-care (01) | DRG 563 ==
LOC: ER 08:12
DX: S93.431A Sprain of tibiofibular ligament of right ankle, initial encounter (principal); W01.0XXA Fall on same level from slipping, tripping and stumbling without subsequent striking against object, initial encounter; Y93.01 Activity, walking, marching and hiking; Y92.090 Kitchen in other non-institutional residence as the place of occurrence of the external cause
CPT/HCPCS: 29540; 73610; 73630; 96372; 99282; 99283; J1885